=== PATIENT | female | born 1975 | race Caucasian/White ===

== ENCOUNTER 2018-09-17 08:22 | Day surgery (SDC) | payer OTHER ==
[2018-09-14 11:24] VITALS: BMI 37.9
[2018-09-17] MEDS ORDERED: CeleCOXIB 100 MG CAP ONE (08:36)
[2018-09-17] MEDS ORDERED: Acetaminophen 500 MG TAB ONE (08:36)
[2018-09-17] MEDS ORDERED: Gabapentin 300 MG CAP ONE (08:36)
[2018-09-17 08:59] LABS: #Eosinphils 0.1 thou/uL (0.0-0.7); #Lymphocytes 1.2 thou/uL (1.20-3.40); #Monocytes 0.4 thou/uL (0.11-0.59); #Neutrophils 3.2 thou/uL (1.40-6.50); %Basophils 0.7 % (0.0-1.0); %Eosinophils 1.6 % (0.0-10.0); %Monocytes 8.9 % (0.0-10.0); %Neutrophils 64.8 % (42.0-75.0); Hemoglobin 13.5 g/dL (12.0-16.0); Mean Corpuscular HGB CONC 32.4 g/dL (32.0-36.0); Mean Corpuscular Hemoglobin 29.5 pg (27.0-31.0); Mean Corpuscular Volume 90.9 fL (78.0-98.0); Mean Platelet Volume 7.5 fL (7.4-10.4); Platelet Count 277 thou/uL (130-400); RBC Distribution Width 12.5 % (11.5-14.5); Red Blood Cell (RBC) Count 4.57 mill/uL (4.20-5.40)
[2018-09-17 09:14] LABS: Anion Gap 10 mmol/L (10-20); BUN (Urea Nitrogen) 12 mg/dL (7.0-18.7); Calc. Creatinine Clearance 144 mL/min (70-130); Calcium 9.4 mg/dL (7.8-10.44); Carbon Dioxide 26 mmol/L (22-29); Chloride 109 mmol/L (98-107); Estimated GFR-MDRD 80; Glucose 83 mg/dL (70-105); Potassium 4.4 mmol/L (3.5-5.1); Sodium 141 mmol/L (136-145)
[2018-09-17] MEDS ORDERED: Lidocaine 1% w/Epinephrine 1:100K 20 ML VIAL ONE (10:03)
[2018-09-17] MEDS ORDERED: Ferric Subsulfate 8 ML BOT ONE (10:03)
[2018-09-17] MEDS ORDERED: Fentanyl 100 MCG/2 ML VIAL ONE (10:09)
[2018-09-17] MEDS ORDERED: Lidocaine 1% PF 5 ML VIAL ONE (13:12)
[2018-09-17] MEDS ORDERED: PROPOFOL 200 MG/20 ML VIAL ONE (13:12)
[2018-09-17] MEDS ORDERED: Dexamethasone 20 MG/5 ML VIAL ONE (13:12)
[2018-09-17] MEDS ORDERED: Ondansetron PF 4 MG/2 ML Vial ONE (13:12)
--- NOTE | 2018-09-18 08:55 | OP ---
DATE OF PROCEDURE: 09/17/2018 PREOPERATIVE DIAGNOSIS: Cervical intraepithelial neoplasia 2 to 3. POSTOPERATIVE DIAGNOSIS: Cervical intraepithelial neoplasia 2 to 3. PROCEDURES PERFORMED: Cervical conization and endocervical curettage. COMPLICATIONS: None. ANESTHESIA: General. ESTIMATED BLOOD LOSS: 10 mL. IV FLUIDS: 600 mL. URINARY OUTPUT: 150 mL. FINDINGS: Normal external genitalia. Normal vaginal epithelium. Normal uptake of Lugol's for the majority of the ectocervix with lack of uptake in the endocervix as expected. Hemostasis after completion of the procedure. DESCRIPTION OF PROCEDURE: The patient was brought to the operating room. She was placed under general anesthesia. The patient was placed in dorsal lithotomy position using Nathan stirrups. She was prepped and draped in a sterile fashion. An official time-out was performed. Two retractors were used, one anteriorly and one posteriorly. The cervix was grasped at 12 o'clock. Two stay sutures were placed at 3 and 9 o'clock. The cervix was sequentially injected using lidocaine with epinephrine, Lugol's was then applied to the cervix. The endocervical canal was identified using a uterine sound. The conization was performed in circumferential fashion. The tissue texture of the cervix was very thick, probably due to her previous LEEP. Therefore, the cervical conization unfortunately came out in multiple pieces. It was not a clear cone. It was in the anterior portion and the two posterior portions that were removed due to the tissue density and due to the positioning of her cervix as well. The uterus was anteverted. The bed of the conization was cauterized using the Bovie with a ball tip. The endocervical curettage was performed and this tissue was also obtained. Monsel's was placed along the bed creating hemostasis. The instruments were then removed from the vagina and the patient was placed back in supine position. She was extubated without difficulty. All counts were correct x2, and she will be transferred to the PACU in hemodynamically stable condition. Job ID: [id number]
== END 2018-09-17 12:52 | disposition home or self-care (01) ==
LOC: SDC 08:22
PROVIDERS: ATTEND Obstetrics & Gynecology
PROC: 0UBC7ZX Excision of Cervix, Via Natural or Artificial Opening, Diagnostic (ICD-10-PCS; principal; 2018-09-17)
DX: D06.9 Carcinoma in situ of cervix, unspecified (principal); N72 Inflammatory disease of cervix uteri; J45.909 Unspecified asthma, uncomplicated; E78.5 Hyperlipidemia, unspecified; F41.9 Anxiety disorder, unspecified; E03.9 Hypothyroidism, unspecified; E55.9 Vitamin D deficiency, unspecified; K21.9 Gastro-esophageal reflux disease without esophagitis; B18.2 Chronic viral hepatitis C; E66.9 Obesity, unspecified; Z68.37 Body mass index [BMI] 37.0-37.9, adult; Z88.2 Allergy status to sulfonamides; Z79.899 Other long term (current) drug therapy; Z87.891 Personal history of nicotine dependence
CPT/HCPCS: 36415; 80048; 85025; 86850; 86900; 86901; 88305; 88307; 93005; 93010; J2001; J3010